=== PATIENT | male | born 1945 | race Caucasian/White ===

== ENCOUNTER 2018-04-26 23:10 | Emergency (ER) | payer MEDICARE ==
[2018-04-26] MEDS ORDERED: Metoprolol Tartrate 5 MG/5 ML VIAL ONE (23:37)
[2018-04-26 23:40] LABS: #Basophils 0.1 thou/uL (0.0-0.2); #Eosinphils 0.1 thou/uL (0.0-0.7); #Lymphocytes 2.5 thou/uL (1.20-3.40); #Monocytes 0.9 thou/uL (0.11-0.59); #Neutrophils 8.2 thou/uL (1.40-6.50); %Basophils 0.9 % (0.0-1.0); %Eosinophils 0.9 % (0.0-10.0); %Lymphocytes 21.3 % (21.0-51.0); %Monocytes 7.5 % (0.0-10.0); %Neutrophils 69.4 % (42.0-75.0); Hemoglobin 15.6 g/dL (14.0-18.0); Mean Corpuscular HGB CONC 33.5 g/dL (32.0-36.0); Mean Corpuscular Hemoglobin 31.4 pg (27.0-31.0); Mean Corpuscular Volume 93.7 fL (78.0-98.0); Mean Platelet Volume 8.1 fL (7.4-10.4); Platelet Count 217 thou/uL (130-400); RBC Distribution Width 12.3 % (11.5-14.5); Red Blood Cell (RBC) Count 4.97 mill/uL (4.70-6.10); White Blood Cell (WBC) Count 11.8 thou/uL (4.8-10.8)
[2018-04-26 23:48] LABS: INR-International Normal Ratio 1.2; PTT 33.5 SEC (22.9-36.1); Prothrombin Time 15.3 SEC (12.0-14.7)
--- NOTE | 2018-04-26 23:57 | RAD ---
FRONTAL VIEW CHEST 04/26/18 COMPARISON: 03/17/16 INDICATION: Chest pain. FINDINGS: patchy left basilar density is present. There is elevation of the right hemidiaphragm with adjacent l inear density to indicate atelectasis or scar. The cardiac silhouette is accentuated by portable tech nique. There is mild vascular congestion. Osseous structure are stable. IMPRESSION: Bibasilar densities which may relate to atelectasis. Prominent pulmonary vasculature. Correlate for fluid status. POS: [facility]
[2018-04-27] LABS: ALT (SGPT) 28 U/L (8-55); AST (SGOT) 34 U/L (5-34); Albumin 4.3 g/dL (3.4-4.8); Alkaline Phosphatase 111 U/L (40-150); Anion Gap 14 mmol/L (10-20); BUN (Urea Nitrogen) 15 mg/dL (8.4-25.7); Bilirubin, Total 1.2 mg/dL (0.2-1.2); Calc. Creatinine Clearance 0 mL/min (70-130); Calcium 9.4 mg/dL (7.8-10.44); Carbon Dioxide 22 mmol/L (23-31); Chloride 106 mmol/L (98-107); Estimated GFR-MDRD 63; Globulin 3.4 g/dL (2.4-3.5); Glucose 187 mg/dL (83-110); Potassium 3.4 mmol/L (3.5-5.1); Protein, Total 7.7 g/dL (5.8-8.1); Sodium 139 mmol/L (136-145)
[2018-04-27] MEDS ORDERED: Metoprolol Tartrate 5 MG/5 ML VIAL ONE (00:48)
== END 2018-04-27 03:21 | disposition home or self-care (01) ==
LOC: ERS 23:10
DX: I48.91 Unspecified atrial fibrillation (principal); I10 Essential (primary) hypertension; E78.00 Pure hypercholesterolemia, unspecified; Z79.899 Other long term (current) drug therapy
CPT/HCPCS: 71045; 80053; 83880; 84443; 84484; 85025; 85610; 85730; 93005; 96361; 96374; 96376

== ENCOUNTER 2021-02-01 13:24 | Outpatient (CLI) | payer MEDICARE | END 2021-02-01 13:25 | disposition home or self-care (01) | LOC: BICULT 13:24 | PROVIDERS: ATTEND Family Medicine | DX: N28.9 Disorder of kidney and ureter, unspecified (principal) | CPT/HCPCS: 76770 ==

== ENCOUNTER 2021-08-26 15:36 | Outpatient (CLI) | payer MEDICARE | END 2021-08-26 15:37 | disposition home or self-care (01) | LOC: BICRAD 15:36 | PROVIDERS: ATTEND Family Medicine | DX: R05.9 Cough, unspecified (principal) | CPT/HCPCS: 71046; U0003; U0005 ==

== ENCOUNTER 2022-12-01 13:48 | Outpatient (CLI) | payer MEDICARE | END 2022-12-01 13:49 | disposition home or self-care (01) | LOC: ULT 13:48 | PROVIDERS: ATTEND Nurse Practitioner Family | DX: R59.1 Generalized enlarged lymph nodes (principal); R68.84 Jaw pain | CPT/HCPCS: 76536 ==

== ENCOUNTER 2023-07-31 22:59 | Inpatient (IN) | payer MEDICARE ==
[2023-08-01 00:34] LABS: Hematocrit 39.5 % (42.0-52.0); Hemoglobin 12.6 g/dL (14.0-18.0); Mean Corpuscular HGB CONC 31.9 g/dL (32.0-36.0); Mean Corpuscular Hemoglobin 28.3 pg (27.0-31.0); Mean Corpuscular Volume 88.6 fL (78.0-98.0); Mean Platelet Volume 10.2 fL (7.4-10.4); Platelet Count 190 10x3/uL (130-400); RBC Distribution Width 15.3 % (11.5-14.5); Red Blood Cell (RBC) Count 4.46 mill/uL (4.70-6.10)
[2023-08-01 00:52] LABS: Troponin I 0.011 ng/mL (< 0.028)
[2023-08-01 00:53] LABS: Globulin 3.2 g/dL (2.4-3.5)
[2023-08-01 00:55] LABS: Band 1 % (5-11); Eosinophils 1 % (0-10); Lymphocytes 17 % (21-51); Monocytes 15 % (0-10); Neutrophil 65 % (42-75); Platelet Adequacy Comment Platelets Normal; RBC Morphology Within Normal Limits; Smudge Cells 17.2 %
[2023-08-01 00:57] LABS: ALT (SGPT) 21 U/L (8-55); AST (SGOT) 29 U/L (5-34); Albumin 3.5 g/dL (3.4-4.8); Alkaline Phosphatase 74 U/L (40-110); Anion Gap 15 mmol/L (10-20); BUN (Urea Nitrogen) 18 mg/dL (8.4-25.7); Bilirubin, Total 0.4 mg/dL (0.2-1.2); Calc. Creatinine Clearance 0 mL/min (70-130); Calcium 8.9 mg/dL (7.8-10.44); Carbon Dioxide 22 mmol/L (23-31); Chloride 104 mmol/L (98-107); Estimated GFR 44; Glucose 102 mg/dL (83-110); Potassium 4.4 mmol/L (3.5-5.1); Protein, Total 6.7 g/dL (5.8-8.1); Sodium 137 mmol/L (136-145)
[2023-08-01] MEDS ORDERED: Ondansetron ODT 4 MG TAB SL PRN (07:30)
[2023-08-01] MEDS ORDERED: Ondansetron PF 4 MG/2 ML Vial IVP PRN (07:30)
[2023-08-01 07:55] LABS: Troponin I Less than 0.010 ng/mL (< 0.028)
[2023-08-01] MEDS: Dronedarone HCl 400 MG TAB PO SCH (08:00)
[2023-08-01 09:27] LABS: #Basophils 0.05 10x3/uL (0.0-0.2); %Basophils 0.8 % (0.0-1.0); %Eosinophils 0.5 % (0.0-10.0); %Neutrophils 53.5 % (42.0-75.0); Hematocrit 36.2 % (42.0-52.0); Hemoglobin 11.6 g/dL (14.0-18.0); Mean Corpuscular Hemoglobin 28.2 pg (27.0-31.0); Mean Corpuscular Volume 88.1 fL (78.0-98.0); Mean Platelet Volume 10.1 fL (7.4-10.4); Platelet Count 174 10x3/uL (130-400); RBC Distribution Width 15.3 % (11.5-14.5); Red Blood Cell (RBC) Count 4.11 mill/uL (4.70-6.10)
[2023-08-01 11:27] LABS: Troponin I Less than 0.010 ng/mL (< 0.028)
[2023-08-01 12:22] VITALS: BMI 31.9
[2023-08-01 12:24] LABS: Troponin I Less than 0.010 ng/mL (< 0.028)
[2023-08-01 12:25] LABS: BUN (Urea Nitrogen) 17 mg/dL (8.4-25.7); Calc. Creatinine Clearance 59 mL/min (70-130); Calcium 8.5 mg/dL (7.8-10.44); Carbon Dioxide 21 mmol/L (23-31); Chloride 106 mmol/L (98-107); Estimated GFR 53; Glucose 88 mg/dL (83-110); Potassium 4.1 mmol/L (3.5-5.1); Sodium 136 mmol/L (136-145)
[2023-08-01 12:29] LABS: Anion Gap 13 mmol/L (10-20)
[2023-08-01] MEDS ORDERED: Metoprolol Tartrate 25 MG TAB PO PRN (15:13)
[2023-08-01] MEDS ORDERED: Metoprolol Tartrate 25 MG TAB ONE (15:19)
[2023-08-01] MEDS: Metoprolol Tartrate 25 MG TAB PO SCH (15:29)
[2023-08-01] MEDS ORDERED: Amiodarone 450 MG in Dextrose 5% in Water 250 ML IVPB SCH (16:15)
[2023-08-01] MEDS ORDERED: Dronedarone HCl 400 MG TAB PO SCH (17:00)
[2023-08-01] MEDS ORDERED: Nitroglycerin 2% Ointment 1 INCH/1 GM Packet ONE (17:03)
[2023-08-01] MEDS ORDERED: Nitroglycerin 0.4 MG TAB 1 EACH ONE ×2 (17:10→17:12)
[2023-08-01] MEDS: Nitroglycerin 0.4 MG TAB 1 EACH SL SCH (17:13)
[2023-08-01] MEDS ORDERED: Amiodarone 450 MG, Admixture Fee 1 EACH in Dextrose 5% in Water 250 ML IVPB SCH (17:30)
[2023-08-01] MEDS: Amiodarone 150 MG, Admixture Fee 1 EACH in Dextrose 5% in Water 100 ML IVPB SCH (19:10)
[2023-08-01] MEDS ORDERED: Metoprolol Tartrate 25 MG TAB PO SCH (21:00)
[2023-08-01] MEDS: Gabapentin 100 MG CAP PO SCH (21:15)
[2023-08-01] MEDS: Rosuvastatin 20 MG TAB PO SCH (21:15)
[2023-08-01] MEDS: hydrALAZINE 20 MG/ML VIAL SLOW IVP SCH (21:15)
[2023-08-01] MEDS: Apixaban 5 MG TAB PO SCH (21:15)
[2023-08-02] MEDS: Acetaminophen 325 MG TAB PO PRN (04:26)
[2023-08-02 06:49] LABS: #Basophils 0.04 10x3/uL (0.0-0.2); %Basophils 0.6 % (0.0-1.0); %Eosinophils 0.6 % (0.0-10.0); %Lymphocytes 25.7 % (21.0-51.0); %Monocytes 17.6 % (0.0-10.0); %Neutrophils 55.2 % (42.0-75.0); Hematocrit 38.5 % (42.0-52.0); Hemoglobin 12.4 g/dL (14.0-18.0); Mean Corpuscular HGB CONC 32.2 g/dL (32.0-36.0); Mean Corpuscular Hemoglobin 28.9 pg (27.0-31.0); Mean Corpuscular Volume 89.7 fL (78.0-98.0); Mean Platelet Volume 10.2 fL (7.4-10.4); Platelet Count 175 10x3/uL (130-400); RBC Distribution Width 15.6 % (11.5-14.5); Red Blood Cell (RBC) Count 4.29 mill/uL (4.70-6.10)
[2023-08-02 07:20] LABS: Anion Gap 13 mmol/L (10-20); BUN (Urea Nitrogen) 15 mg/dL (8.4-25.7); Calc. Creatinine Clearance 72 mL/min (70-130); Calcium 8.7 mg/dL (7.8-10.44); Carbon Dioxide 20 mmol/L (23-31); Chloride 107 mmol/L (98-107); Estimated GFR 68; Glucose 85 mg/dL (83-110); Potassium 4.2 mmol/L (3.5-5.1); Sodium 136 mmol/L (136-145)
[2023-08-02] MEDS ORDERED: Communication Order-Pharmacy FS SCH (08:41)
[2023-08-02] MEDS ORDERED: Fludrocortisone Acetate 0.1 MG TAB PO SCH (09:00)
[2023-08-02 09:36] LABS: Hematocrit 39.4 % (42.0-52.0); Hemoglobin 12.9 g/dL (14.0-18.0); Platelet Count 181 10x3/uL (130-400)
[2023-08-02] MEDS: Enoxaparin 100 MG (1 mL) SYRINGE SC SCH (09:53)
[2023-08-02] MEDS: Amiodarone 200 MG TAB PO SCH (09:56)
[2023-08-02] MEDS ORDERED: Ondansetron PF 4 MG/2 ML Vial IVP PRN (18:16)
[2023-08-02] MEDS: Fioricet 325/50/40 mg Tablet PO PRN (18:21)
[2023-08-02] MEDS ORDERED: Enoxaparin 80 MG (0.8 mL) SYRINGE SC SCH (21:00)
[2023-08-03 07:11] LABS: #Basophils 0.05 10x3/uL (0.0-0.2); %Basophils 0.6 % (0.0-1.0); %Eosinophils 2.7 % (0.0-10.0); %Lymphocytes 27.8 % (21.0-51.0); %Monocytes 15.2 % (0.0-10.0); %Neutrophils 53.6 % (42.0-75.0); Hematocrit 41.9 % (42.0-52.0); Hemoglobin 13.6 g/dL (14.0-18.0); Mean Corpuscular HGB CONC 32.5 g/dL (32.0-36.0); Mean Corpuscular Hemoglobin 28.8 pg (27.0-31.0); Mean Corpuscular Volume 88.8 fL (78.0-98.0); Mean Platelet Volume 10.7 fL (7.4-10.4); Platelet Count 182 10x3/uL (130-400); RBC Distribution Width 15.4 % (11.5-14.5); Red Blood Cell (RBC) Count 4.72 mill/uL (4.70-6.10)
[2023-08-03 07:32] LABS: Anion Gap 17 mmol/L (10-20); BUN (Urea Nitrogen) 17 mg/dL (8.4-25.7); Calc. Creatinine Clearance 71 mL/min (70-130); Calcium 9.1 mg/dL (7.8-10.44); Carbon Dioxide 20 mmol/L (23-31); Cardiac Risk 2.9 (Less than 4.5); Chloride 107 mmol/L (98-107); Cholesterol 106 mg/dl (< 200 Desired); Estimated GFR 68; Glucose 89 mg/dL (83-110); HDL Cholesterol 37 mg/dL (>60 Neg Risk); LDL Cholesterol, Calculated 53 mg/dL; Potassium 4.1 mmol/L (3.5-5.1); Sodium 140 mmol/L (136-145); Triglycerides 78 mg/dL (Less than 150)
[2023-08-03] MEDS: Metoprolol Tartrate 25 MG TAB PO SCH (08:57)
[2023-08-03] MEDS: Acetaminophen 325 MG TAB PO PRN (17:56)
[2023-08-04 04:18] LABS: #Basophils 0.04 10x3/uL (0.0-0.2); %Basophils 0.5 % (0.0-1.0); %Lymphocytes 30.2 % (21.0-51.0); %Monocytes 14.1 % (0.0-10.0); %Neutrophils 51.1 % (42.0-75.0); Hematocrit 40.4 % (42.0-52.0); Hemoglobin 13.2 g/dL (14.0-18.0); Mean Corpuscular HGB CONC 32.7 g/dL (32.0-36.0); Mean Corpuscular Hemoglobin 28.2 pg (27.0-31.0); Mean Corpuscular Volume 86.3 fL (78.0-98.0); Mean Platelet Volume 10.1 fL (7.4-10.4); Platelet Count 185 10x3/uL (130-400); RBC Distribution Width 15.6 % (11.5-14.5); Red Blood Cell (RBC) Count 4.68 mill/uL (4.70-6.10)
[2023-08-04 04:51] LABS: Anion Gap 15 mmol/L (10-20); BUN (Urea Nitrogen) 18 mg/dL (8.4-25.7); Calc. Creatinine Clearance 71 mL/min (70-130); Calcium 8.9 mg/dL (7.8-10.44); Carbon Dioxide 22 mmol/L (23-31); Chloride 106 mmol/L (98-107); Estimated GFR 68; Glucose 90 mg/dL (83-110); Sodium 139 mmol/L (136-145)
[2023-08-04] MEDS ORDERED: Regadenoson 0.4 MG/5 ML SYRINGE ONE (09:54)
[2023-08-04] MEDS: Amlodipine 5 MG TAB PO SCH (10:13)
[2023-08-04] MEDS: Apixaban 5 MG TAB PO SCH (20:54)
[2023-08-05 04:53] LABS: Hematocrit 38.3 % (42.0-52.0); Hemoglobin 12.6 g/dL (14.0-18.0); Platelet Count 204 10x3/uL (130-400)
[2023-08-05] MEDS: hydrALAZINE 25 MG TAB PO SCH (06:30)
[2023-08-05 13:53] VITALS: BP 136/76; TEMP 97.6
[2023-08-16] MEDS ORDERED: Amiodarone 200 MG TAB PO SCH (09:00)
[2023-08-30] MEDS ORDERED: Amiodarone 200 MG TAB PO SCH (09:00)
== END 2023-08-05 13:56 | disposition home or self-care (01) | DRG 310 ==
LOC: ERS 22:59 → ERHOLD 08-01 02:32 → IMCU/EMU 08-01 18:38 → OBSVTOIN 08-02 13:10 → 2NO 08-04 08:19
PROVIDERS: ADMIT Internal Medicine; ATTEND Internal Medicine
DX: I48.0 Paroxysmal atrial fibrillation (principal); I95.1 Orthostatic hypotension; N18.9 Chronic kidney disease, unspecified; N40.0 Benign prostatic hyperplasia without lower urinary tract symptoms; I12.9 Hypertensive chronic kidney disease with stage 1 through stage 4 chronic kidney disease, or unspecified chronic kidney disease; I25.10 Atherosclerotic heart disease of native coronary artery without angina pectoris; E78.5 Hyperlipidemia, unspecified; Z87.891 Personal history of nicotine dependence; Z82.49 Family history of ischemic heart disease and other diseases of the circulatory system; Z79.899 Other long term (current) drug therapy
CPT/HCPCS: 36415; 36416; 71045; 78452; 80048; 80053; 80061; 82533; 83880; 84443; 84484; 85014; 85018; 85025; 85049; 93005; 93017; 93306; 93880; 96360; 96361; 96372; 96375; A9502; G0378; J0282; J0360; J1650; J2785; J7070

== ENCOUNTER 2023-08-25 08:36 | Outpatient (CLI) | payer MEDICARE ==
[2023-08-25] MEDS ORDERED: Magnevist 469MG/ML 20 ML VIAL ONE (12:45)
== END 2023-08-25 08:37 | disposition home or self-care (01) ==
LOC: BICMRI 08:36
PROVIDERS: ATTEND Family Medicine
DX: G25.0 Essential tremor (principal)
CPT/HCPCS: 70553; A9579

== ENCOUNTER 2023-09-13 08:24 | Outpatient (CLI) | payer MEDICARE | END 2023-09-13 08:25 | disposition home or self-care (01) | LOC: NM 08:24 | PROVIDERS: ATTEND Psychiatry & Neurology Neurology | DX: R25.1 Tremor, unspecified (principal); G31.9 Degenerative disease of nervous system, unspecified | CPT/HCPCS: 78803; A9584 ×2 ==

== ENCOUNTER 2023-10-02 08:13 | Day surgery (SDC) | payer MEDICARE ==
[2023-09-27 09:08] VITALS: BMI 30.5
[2023-09-27 10:10] LABS: Hematocrit 40.9 % (38.8-50.0); Hemoglobin 13.5 g/dL (13.5-17.5); Mean Corpuscular Hemoglobin 29.2 pg (27.0-33.0); Mean Corpuscular Volume 88.3 fL (81.2-95.1); Platelet Count 274 10x3/uL (150-450); RBC Distribution Width 15.1 % (11.5-14.5); Red Blood Cell (RBC) Count 4.63 10x6/uL (4.32-5.72); White Blood Cell (WBC) Count 8.3 10x3/uL (3.5-10.5)
[2023-09-27 10:15] LABS: INR-International Normal Ratio 1.1; PTT 27.9 sec (22.0-33.0); Prothrombin Time 11.5 sec (9.5-12.1)
[2023-09-27 10:17] LABS: Anion Gap 14 mmol/L (10-20); BUN (Urea Nitrogen) 17 mg/dL (8.4-25.7); Calc. Creatinine Clearance 60 mL/min (70-130); Calcium 9.3 mg/dL (7.8-10.44); Carbon Dioxide 22 mmol/L (23-31); Chloride 108 mmol/L (98-107); Estimated GFR 57; Glucose 159 mg/dL (83-110); Potassium 4.4 mmol/L (3.5-5.1); Sodium 140 mmol/L (136-145)
[2023-10-02] MEDS ORDERED: PROPOFOL 200 MG/20 ML VIAL ONE (11:00)
[2023-10-02] MEDS ORDERED: Rocuronium Bromide 10 MG/ML (10ML VIAL) ONE (11:00)
[2023-10-02] MEDS ORDERED: PHENYLEPHRINE-NS 100 MCG/ML 10 ML SYRINGE ONE (11:00)
[2023-10-02] MEDS ORDERED: Lidocaine 1% PF 5 ML VIAL ONE (11:00)
[2023-10-02] MEDS ORDERED: ePHEDrine Sulfate 50 MG/10 ML VIAL ONE (11:00)
[2023-10-02] MEDS ORDERED: Heparin 25,000 units/D5W 500 ML ONE (11:10)
[2023-10-02] MEDS ORDERED: Sevoflurane 250 ML INH ANEST BOTTLE ONE (12:04)
[2023-10-02] MEDS ORDERED: SUGAMMADEX SODIUM 200 MG/2 ML VIAL ONE (13:27)
[2023-10-02] MEDS ORDERED: fentaNYL 50 mcg/mL 1 mL Vial ONE (14:39)
== END 2023-10-02 17:13 | disposition home or self-care (01) ==
LOC: SDC 08:13
PROVIDERS: ATTEND Internal Medicine Cardiovascular Disease
PROC: 4A023FZ Measurement of Cardiac Rhythm, Percutaneous Approach (ICD-10-PCS; principal; 2023-10-02)
PROC: 02583ZZ Destruction of Conduction Mechanism, Percutaneous Approach (ICD-10-PCS; 2023-10-02)
DX: I48.0 Paroxysmal atrial fibrillation (principal); I95.1 Orthostatic hypotension; Z79.01 Long term (current) use of anticoagulants; Z87.891 Personal history of nicotine dependence; Z88.8 Allergy status to other drugs, medicaments and biological substances
CPT/HCPCS: 80048; 85027; 85347 ×2; 85610; 85730; 93005; 93622; 93656; 93657; C1732 ×2; C1759; C1760; C1894; J1644; J2704; J3010

== ENCOUNTER 2023-10-05 00:34 | Inpatient (IN) | payer MEDICARE ==
[2023-10-05] MEDS ORDERED: Ketorolac Tromethamine 30 MG (1 mL) VIAL ONE (01:20)
[2023-10-05] MEDS ORDERED: Acetaminophen 325 MG TAB PO PRN (02:45)
[2023-10-05] MEDS ORDERED: Ondansetron PF 4 MG/2 ML Vial IVP PRN (02:45)
[2023-10-05] MEDS ORDERED: Ondansetron ODT 4 MG TAB SL PRN (02:45)
[2023-10-05 03:01] LABS: Influenza A by NAA Not Detected (NotDetected); Influenza B by NAA Not Detected (NotDetected); SARS-CoV-2 NAA Rapid Test Not Detected (NotDetected)
[2023-10-05 03:19] LABS: #Basophils 0.04 10x3/uL (0.0-0.2); %Basophils 0.2 % (0.0-1.0); %Eosinophils 0.2 % (0.0-10.0); %Lymphocytes 3.8 % (21.0-51.0); %Monocytes 6.7 % (0.0-10.0); %Neutrophils 88.1 % (42.0-75.0); Hematocrit 33.4 % (42.0-52.0); Hemoglobin 10.8 g/dL (14.0-18.0); Mean Corpuscular HGB CONC 32.3 g/dL (32.0-36.0); Mean Corpuscular Hemoglobin 28.9 pg (27.0-31.0); Mean Corpuscular Volume 89.3 fL (78.0-98.0); Mean Platelet Volume 9.7 fL (7.4-10.4); Platelet Count 167 10x3/uL (130-400); RBC Distribution Width 15.2 % (11.5-14.5); Red Blood Cell (RBC) Count 3.74 mill/uL (4.70-6.10)
[2023-10-05 03:32] LABS: ALT (SGPT) 93 U/L (8-55); AST (SGOT) 164 U/L (5-34); Albumin 2.8 g/dL (3.4-4.8); Alkaline Phosphatase 154 U/L (40-110); Anion Gap 12 mmol/L (10-20); BUN (Urea Nitrogen) 16 mg/dL (8.4-25.7); Bilirubin, Total 1.9 mg/dL (0.2-1.2); Calc. Creatinine Clearance 0 mL/min (70-130); Calcium 8.1 mg/dL (7.8-10.44); Carbon Dioxide 19 mmol/L (23-31); Chloride 110 mmol/L (98-107); Estimated GFR 47; Globulin 2.9 g/dL (2.4-3.5); Glucose 124 mg/dL (83-110); Potassium 3.7 mmol/L (3.5-5.1); Protein, Total 5.7 g/dL (5.8-8.1); Sodium 137 mmol/L (136-145)
[2023-10-05 03:47] VITALS: BMI 28.3
[2023-10-05] MEDS ORDERED: Acetaminophen 650 MG Suppository PR PRN (04:26)
[2023-10-05] MEDS: Pantoprazole 40 MG VIAL IVP SCH ×2 (04:46→20:40)
[2023-10-05] MEDS: Morphine 4 MG/ML VIAL SLOW IVP SCH (04:47)
[2023-10-05] MEDS: Sodium Chloride 0.9% 1,000 ML IV SCH (04:52)
[2023-10-05 06:19] LABS: Bacteria/HPF None Seen HPF (None Seen); Bilirubin Negative (Negative); Blood, Urine Negative (Negative); CAUTI Indications for Culture Pelvic or flank pain; Clarity Clear (Clear); Glucose, Urine (Dipstick) 30 mg/dL (Negative); Ketone, Urine Negative (Negative); Leukocyte Negative Leu/uL (Negative); Nitrite Negative (Negative); Protein, Urine (Dipstick) 20 mg/dL (Neg-Trace); RBC/HPF 0-3 HPF (0-3); Squamous Epithelial 0-3 HPF (0-3); Urobilinogen Normal mg/dL (Less than 2); WBC/HPF 0-3 HPF (0-3); pH, Urine 5.5 (5.0-9.0)
[2023-10-05 06:20] LABS: Specific Gravity, Urine 1.046 (1.002-1.036)
[2023-10-05 06:21] LABS: Urine Culture Reflex No No
[2023-10-05] MEDS: Piperacillin/Tazobactam 3.375 GM in Sodium Chloride 0.9% 100 ML IVPB SCH ×2 (07:24→08:41)
[2023-10-05] MEDS ORDERED: Sucralfate 1 GM/10 ML UDCUP PO SCH (07:30)
[2023-10-05 07:51] LABS: Critical Call Chem Troponin I RESULT DECREASING; Troponin I 0.726 ng/mL (< 0.028)
[2023-10-05] MEDS: Morphine 4 MG/ML VIAL SLOW IVP PRN (08:40)
[2023-10-05] MEDS: D5 LR w/20 mEq KCL 1,000 ML IV SCH (10:31)
[2023-10-06 03:54] LABS: Hematocrit 31.3 % (42.0-52.0); Hemoglobin 10.1 g/dL (14.0-18.0); Mean Corpuscular HGB CONC 32.3 g/dL (32.0-36.0); Mean Corpuscular Hemoglobin 28.5 pg (27.0-31.0); Mean Corpuscular Volume 88.4 fL (78.0-98.0); Mean Platelet Volume 10.6 fL (7.4-10.4); Platelet Count 141 10x3/uL (130-400); RBC Distribution Width 15.9 % (11.5-14.5); Red Blood Cell (RBC) Count 3.54 mill/uL (4.70-6.10)
[2023-10-06 04:10] LABS: ALT (SGPT) 125 U/L (8-55); AST (SGOT) 148 U/L (5-34); Albumin 2.2 g/dL (3.4-4.8); Alkaline Phosphatase 108 U/L (40-110); Bilirubin, Direct 0.6 mg/dL (0.1-0.3); Phosphorus 2.9 mg/dL (2.3-4.7); Protein, Total 5.2 g/dL (5.8-8.1)
[2023-10-06 04:12] LABS: Lactic Acid 1.4 mmol/L (0.5-2.2)
[2023-10-06 04:13] LABS: Anion Gap 13 mmol/L (10-20); BUN (Urea Nitrogen) 24 mg/dL (8.4-25.7); Calc. Creatinine Clearance 45 mL/min (70-130); Carbon Dioxide 22 mmol/L (23-31); Chloride 111 mmol/L (98-107); Estimated GFR 44; Glucose 141 mg/dL (83-110); Magnesium 1.6 mg/dL (1.6-2.6); Potassium 4.1 mmol/L (3.5-5.1); Sodium 142 mmol/L (136-145)
[2023-10-06 04:22] LABS: Band 27 % (5-11); Lymphocytes 3 % (21-51); Metamyelocyte 2 % (0-0); Monocytes 2 % (0-10); Neutrophil 66 % (42-75); Platelet Adequacy Comment Platelets Normal; Polychromasia SLIGHT = 2-3 cells HPF (0-2)
[2023-10-06] MEDS: Magnesium 2 GM/50 ML(in water) 2 GM in Premix 1 BAG IVPB SCH (08:57)
[2023-10-06] MEDS ORDERED: Pantoprazole 40 MG VIAL IVP SCH (09:00)
[2023-10-06] MEDS: Morphine 2 MG/ML VIAL SLOW IVP PRN (14:39)
[2023-10-06] MEDS: D5 LR w/20 mEq KCL 1,000 ML IV SCH (17:22)
[2023-10-06] MEDS: Sodium Chloride 0.9% 1,000 ML IV SCH (21:19)
[2023-10-07 04:34] LABS: ALT (SGPT) 81 U/L (8-55); AST (SGOT) 62 U/L (5-34); Albumin 2.1 g/dL (3.4-4.8); Alkaline Phosphatase 107 U/L (40-110); Anion Gap 11 mmol/L (10-20); BUN (Urea Nitrogen) 21 mg/dL (8.4-25.7); Calc. Creatinine Clearance 56 mL/min (70-130); Calcium 8.4 mg/dL (7.8-10.44); Carbon Dioxide 20 mmol/L (23-31); Chloride 110 mmol/L (98-107); Estimated GFR 58; Globulin 3.5 g/dL (2.4-3.5); Glucose 145 mg/dL (83-110); Lipase 25 U/L (8-78); Magnesium 2.2 mg/dL (1.6-2.6); Potassium 3.8 mmol/L (3.5-5.1); Protein, Total 5.6 g/dL (5.8-8.1); Sodium 137 mmol/L (136-145)
[2023-10-07 04:36] LABS: Immunoglob - G (Total IgG) 760 mg/dL (540-1822); Immunoglob - M (Total IgM) 41 mg/dL (22-240)
[2023-10-07 04:51] LABS: HBCM Index 0.07 S/CO (0-0.79); HBsAg Index 0.23 S/CO (0-0.99); Hep A IgM AB NONREACTIVE (NonReactive); Hep A IgM S/CO 0.15 S/CO (0-0.79); Hep B Surf Ag NONREACTIVE S/CO (NonReactive); Hep C IgG Ab NONREACTIVE S/CO (NonReactive); Hep C Index 0.06 S/CO (0-0.79); Hepatitis B Core IgM Abs NONREACTIVE S/CO (NonReactive)
[2023-10-07 05:01] LABS: Phosphorus 1.6 mg/dL (2.3-4.7)
[2023-10-07 05:20] LABS: Hematocrit 30.9 % (42.0-52.0); Hemoglobin 10.1 g/dL (14.0-18.0); Mean Corpuscular HGB CONC 32.7 g/dL (32.0-36.0); Mean Corpuscular Hemoglobin 29.3 pg (27.0-31.0); Mean Corpuscular Volume 89.6 fL (78.0-98.0); Platelet Count 151 10x3/uL (130-400); Red Blood Cell (RBC) Count 3.45 mill/uL (4.70-6.10)
[2023-10-07 06:25] LABS: Anisocytosis MODERATE=16-30 cells HPF (0-5); Band 15 % (5-11); Burr Cells SLIGHT = 2-5 cells HPF (0-1); Elliptocytes SLIGHT = 2-5 cells HPF (0-1); Lymphocytes 2 % (21-51); Macrocytosis SLIGHT = 6-15 cells HPF (0-5); Monocytes 2 % (0-10); Neutrophil 81 % (42-75); Platelet Adequacy Comment Platelets Normal; Poikilocytosis SLIGHT = 6-15 cells HPF (0-5); Polychromasia SLIGHT = 2-3 cells HPF (0-2)
[2023-10-07] MEDS ORDERED: PROPOFOL 20 ML ONE (12:07)
[2023-10-07] MEDS: Sucralfate 1 GM TAB PO SCH (18:01)
[2023-10-07] MEDS: Potassium Phosphate 30 MMOL in Sodium Chloride 0.9% 250 ML 250 ML IVPB SCH (21:04)
[2023-10-08 04:31] LABS: #Basophils 0.04 10x3/uL (0.0-0.2); #Eosinphils Less than 0.03 10x3/uL (0.0-0.7); %Basophils 0.2 % (0.0-1.0); %Eosinophils 0.1 % (0.0-10.0); %Lymphocytes 4.8 % (21.0-51.0); %Monocytes 8.7 % (0.0-10.0); %Neutrophils 85.8 % (42.0-75.0); Hematocrit 31.2 % (42.0-52.0); Hemoglobin 10.2 g/dL (14.0-18.0); Mean Corpuscular HGB CONC 32.7 g/dL (32.0-36.0); Mean Corpuscular Hemoglobin 28.3 pg (27.0-31.0); Mean Corpuscular Volume 86.7 fL (78.0-98.0); Mean Platelet Volume 10.3 fL (7.4-10.4); Platelet Count 143 10x3/uL (130-400)
[2023-10-08 05:14] LABS: ALT (SGPT) 55 U/L (8-55); AST (SGOT) 37 U/L (5-34); Albumin 1.9 g/dL (3.4-4.8); Alkaline Phosphatase 114 U/L (40-110); Anion Gap 12 mmol/L (10-20); BUN (Urea Nitrogen) 17 mg/dL (8.4-25.7); Bilirubin, Total 1.2 mg/dL (0.2-1.2); Calc. Creatinine Clearance 68 mL/min (70-130); Calcium 8.2 mg/dL (7.8-10.44); Carbon Dioxide 21 mmol/L (23-31); Chloride 109 mmol/L (98-107); Estimated GFR 73; Globulin 3.5 g/dL (2.4-3.5); Glucose 116 mg/dL (83-110); Protein, Total 5.4 g/dL (5.8-8.1); Sodium 138 mmol/L (136-145)
[2023-10-08] MEDS: Cholecalciferol 1,000 UNITS (25 MCG) TAB PO SCH (09:15)
[2023-10-08] MEDS: Pantoprazole DR 40 MG TAB PO SCH (09:16)
[2023-10-08] MEDS ORDERED: Iopamidol 370 76% 100 ML VIAL ONE (11:03)
[2023-10-08] MEDS: Apixaban 5 MG TAB PO SCH (20:47)
[2023-10-08] MEDS: Acetaminophen 325 MG TAB PO PRN (21:05)
[2023-10-08] MEDS: Morphine 4 MG/ML VIAL SLOW IVP SCH (22:10)
[2023-10-08 22:41] LABS: #Basophils Less than 0.03 10x3/uL (0.0-0.2); %Basophils 0.1 % (0.0-1.0); %Eosinophils 0.3 % (0.0-10.0); %Lymphocytes 8.1 % (21.0-51.0); %Monocytes 12.2 % (0.0-10.0); %Neutrophils 78.6 % (42.0-75.0); Hematocrit 33.1 % (42.0-52.0); Hemoglobin 11.1 g/dL (14.0-18.0); Mean Corpuscular HGB CONC 33.5 g/dL (32.0-36.0); Mean Corpuscular Hemoglobin 28.5 pg (27.0-31.0); Mean Corpuscular Volume 85.1 fL (78.0-98.0); Mean Platelet Volume 10.4 fL (7.4-10.4); Platelet Count 138 10x3/uL (130-400); RBC Distribution Width 16.1 % (11.5-14.5); Red Blood Cell (RBC) Count 3.89 mill/uL (4.70-6.10)
[2023-10-08 23:01] LABS: Lactic Acid 1.1 mmol/L (0.5-2.2)
[2023-10-08 23:05] LABS: ALT (SGPT) 46 U/L (8-55); AST (SGOT) 36 U/L (5-34); Albumin 1.9 g/dL (3.4-4.8); Alkaline Phosphatase 111 U/L (40-110); Anion Gap 14 mmol/L (10-20); BUN (Urea Nitrogen) 19 mg/dL (8.4-25.7); Bilirubin, Total 1.3 mg/dL (0.2-1.2); Calc. Creatinine Clearance 68 mL/min (70-130); Calcium 8.3 mg/dL (7.8-10.44); Carbon Dioxide 20 mmol/L (23-31); Chloride 108 mmol/L (98-107); Estimated GFR 73; Globulin 3.8 g/dL (2.4-3.5); Glucose 123 mg/dL (83-110); Lipase 243 U/L (8-78); Potassium 3.5 mmol/L (3.5-5.1); Protein, Total 5.7 g/dL (5.8-8.1); Sodium 138 mmol/L (136-145)
[2023-10-09] MEDS: Lactated Ringer's 1,000 ML IV SCH ×2 (00:38→16:40)
[2023-10-09 05:09] LABS: #Basophils 0.03 10x3/uL (0.0-0.2); %Basophils 0.2 % (0.0-1.0); %Eosinophils 0.2 % (0.0-10.0); %Lymphocytes 4.7 % (21.0-51.0); %Monocytes 11.1 % (0.0-10.0); %Neutrophils 82.3 % (42.0-75.0); Hematocrit 33.7 % (42.0-52.0); Mean Corpuscular HGB CONC 32.6 g/dL (32.0-36.0); Mean Corpuscular Hemoglobin 28.3 pg (27.0-31.0); Mean Corpuscular Volume 86.6 fL (78.0-98.0); Mean Platelet Volume 10.8 fL (7.4-10.4); Platelet Count 149 10x3/uL (130-400); RBC Distribution Width 16.1 % (11.5-14.5); Red Blood Cell (RBC) Count 3.89 mill/uL (4.70-6.10)
[2023-10-09 05:10] LABS: ALT (SGPT) 46 U/L (8-55); AST (SGOT) 40 U/L (5-34); Albumin 1.9 g/dL (3.4-4.8); Alkaline Phosphatase 116 U/L (40-110); Anion Gap 14 mmol/L (10-20); BUN (Urea Nitrogen) 19 mg/dL (8.4-25.7); Bilirubin, Total 1.6 mg/dL (0.2-1.2); Calc. Creatinine Clearance 72 mL/min (70-130); Calcium 8.4 mg/dL (7.8-10.44); Carbon Dioxide 21 mmol/L (23-31); Chloride 107 mmol/L (98-107); Estimated GFR 78; Glucose 107 mg/dL (83-110); Potassium 4.1 mmol/L (3.5-5.1); Protein, Total 5.9 g/dL (5.8-8.1); Sodium 138 mmol/L (136-145)
[2023-10-09] MEDS: Morphine 4 MG/ML VIAL SLOW IVP PRN (08:08)
[2023-10-09] MEDS: Morphine 4 MG/ML VIAL SLOW IVP SCH (10:25)
[2023-10-09] MEDS: Furosemide 40 MG TAB PO PRN (12:54)
[2023-10-10 04:13] LABS: #Basophils 0.05 10x3/uL (0.0-0.2); %Basophils 0.3 % (0.0-1.0); %Eosinophils 0.2 % (0.0-10.0); %Lymphocytes 5.2 % (21.0-51.0); %Monocytes 10.3 % (0.0-10.0); %Neutrophils 82.9 % (42.0-75.0); Hematocrit 34.8 % (42.0-52.0); Hemoglobin 11.5 g/dL (14.0-18.0); Mean Corpuscular Hemoglobin 28.3 pg (27.0-31.0); Mean Corpuscular Volume 85.5 fL (78.0-98.0); Mean Platelet Volume 11.3 fL (7.4-10.4); Platelet Count 212 10x3/uL (130-400); RBC Distribution Width 16.1 % (11.5-14.5); Red Blood Cell (RBC) Count 4.07 mill/uL (4.70-6.10)
[2023-10-10 04:59] LABS: Lipase 104 U/L (8-78); Phosphorus 3.2 mg/dL (2.3-4.7)
[2023-10-10 05:01] LABS: ALT (SGPT) 34 U/L (8-55); AST (SGOT) 28 U/L (5-34); Albumin 1.9 g/dL (3.4-4.8); Alkaline Phosphatase 125 U/L (40-110); Anion Gap 18 mmol/L (10-20); BUN (Urea Nitrogen) 21 mg/dL (8.4-25.7); Bilirubin, Total 1.4 mg/dL (0.2-1.2); Calc. Creatinine Clearance 54 mL/min (70-130); Calcium 8.7 mg/dL (7.8-10.44); Carbon Dioxide 21 mmol/L (23-31); Chloride 103 mmol/L (98-107); Estimated GFR 55; Globulin 4.3 g/dL (2.4-3.5); Glucose 129 mg/dL (83-110); Potassium 3.6 mmol/L (3.5-5.1); Protein, Total 6.2 g/dL (5.8-8.1); Sodium 138 mmol/L (136-145)
[2023-10-10 11:23] LABS: ANA Symphony (Qualitative) Negative (Negative); ANA Symphony (Quantitative) 0.2 Ratio (< 0.7 Negative); EliA Vaculitis New Method **** NEW METHOD ****; Mitochondrial Ab 0.6 U/mL (<4 Negative)
[2023-10-10] MEDS ORDERED: Sodium Bicarbonate 2.5 MEQ/5 ML SDV ONE (13:32)
[2023-10-10] MEDS ORDERED: fentaNYL 50 mcg/mL 1 mL Vial ONE ×2 (13:32→16:11)
[2023-10-10] MEDS ORDERED: Midazolam HCl 2 mg/2 ml Vial ONE (13:32)
[2023-10-10] MEDS ORDERED: Lidocaine 1% w/Epinephrine 1:100K 20 ML VIAL ONE (13:32)
[2023-10-10 17:28] LABS: Troponin I 0.098 ng/mL (< 0.028)
[2023-10-11 05:16] LABS: #Basophils 0.03 10x3/uL (0.0-0.2); %Basophils 0.2 % (0.0-1.0); %Eosinophils 0.4 % (0.0-10.0); %Lymphocytes 6.5 % (21.0-51.0); %Monocytes 8.8 % (0.0-10.0); %Neutrophils 83.1 % (42.0-75.0); Hematocrit 28.6 % (42.0-52.0); Hemoglobin 9.5 g/dL (14.0-18.0); Mean Corpuscular HGB CONC 33.2 g/dL (32.0-36.0); Mean Corpuscular Hemoglobin 28.4 pg (27.0-31.0); Mean Corpuscular Volume 85.6 fL (78.0-98.0); Mean Platelet Volume 11.4 fL (7.4-10.4); Platelet Count 249 10x3/uL (130-400); RBC Distribution Width 16.1 % (11.5-14.5); Red Blood Cell (RBC) Count 3.34 mill/uL (4.70-6.10)
[2023-10-11 05:20] LABS: Body Fluid Source Abscess Fluid; Clarity Cloudy/Turbid (Clear); Tube # EDTA
[2023-10-11 05:21] LABS: BF Color Red
[2023-10-11 05:41] LABS: ALT (SGPT) 23 U/L (8-55); AST (SGOT) 24 U/L (5-34); Albumin 1.6 g/dL (3.4-4.8); Alkaline Phosphatase 119 U/L (40-110); Anion Gap 11 mmol/L (10-20); BUN (Urea Nitrogen) 22 mg/dL (8.4-25.7); Bilirubin, Total 0.8 mg/dL (0.2-1.2); Calc. Creatinine Clearance 71 mL/min (70-130); Calcium 8.2 mg/dL (7.8-10.44); Carbon Dioxide 25 mmol/L (23-31); Chloride 108 mmol/L (98-107); Estimated GFR 77; Globulin 3.8 g/dL (2.4-3.5); Glucose 123 mg/dL (83-110); Potassium 3.4 mmol/L (3.5-5.1); Protein, Total 5.4 g/dL (5.8-8.1); Sodium 141 mmol/L (136-145)
[2023-10-11 06:38] LABS: Clarity Cloudy/Turbid (Clear); Tube # EDTA
[2023-10-11 06:39] LABS: BF Color Brown
[2023-10-11] MEDS: traMADol HCl 50 MG TAB PO PRN (21:04)
[2023-10-12 05:46] LABS: #Basophils 0.03 10x3/uL (0.0-0.2); %Basophils 0.2 % (0.0-1.0); %Eosinophils 0.3 % (0.0-10.0); %Lymphocytes 6.7 % (21.0-51.0); %Monocytes 7.1 % (0.0-10.0); %Neutrophils 84.8 % (42.0-75.0); Hematocrit 29.3 % (42.0-52.0); Hemoglobin 9.8 g/dL (14.0-18.0); Mean Corpuscular HGB CONC 33.4 g/dL (32.0-36.0); Mean Corpuscular Hemoglobin 28.6 pg (27.0-31.0); Mean Corpuscular Volume 85.4 fL (78.0-98.0); Mean Platelet Volume 10.9 fL (7.4-10.4); Platelet Count 322 10x3/uL (130-400); RBC Distribution Width 16.3 % (11.5-14.5); Red Blood Cell (RBC) Count 3.43 mill/uL (4.70-6.10)
[2023-10-12 06:11] LABS: ALT (SGPT) 18 U/L (8-55); AST (SGOT) 23 U/L (5-34); Albumin 1.7 g/dL (3.4-4.8); Alkaline Phosphatase 94 U/L (40-110); Anion Gap 12 mmol/L (10-20); BUN (Urea Nitrogen) 18 mg/dL (8.4-25.7); Bilirubin, Total 0.7 mg/dL (0.2-1.2); Calc. Creatinine Clearance 85 mL/min (70-130); Calcium 8.1 mg/dL (7.8-10.44); Carbon Dioxide 23 mmol/L (23-31); Chloride 106 mmol/L (98-107); Estimated GFR 90; Glucose 96 mg/dL (83-110); Potassium 3.3 mmol/L (3.5-5.1); Protein, Total 5.7 g/dL (5.8-8.1); Sodium 138 mmol/L (136-145)
[2023-10-12] MEDS: Potassium Chloride 20 MEQ TAB PO SCH (09:07)
[2023-10-12] MEDS: Morphine 2 MG/ML VIAL SLOW IVP PRN (10:02)
[2023-10-13 06:27] LABS: #Basophils 0.03 10x3/uL (0.0-0.2); %Basophils 0.2 % (0.0-1.0); %Eosinophils 0.5 % (0.0-10.0); %Lymphocytes 7.3 % (21.0-51.0); %Monocytes 8.1 % (0.0-10.0); %Neutrophils 83.2 % (42.0-75.0); Hematocrit 28.1 % (42.0-52.0); Hemoglobin 9.4 g/dL (14.0-18.0); Mean Corpuscular HGB CONC 33.5 g/dL (32.0-36.0); Mean Corpuscular Hemoglobin 29.5 pg (27.0-31.0); Mean Corpuscular Volume 88.1 fL (78.0-98.0); Mean Platelet Volume 10.7 fL (7.4-10.4); Platelet Count 389 10x3/uL (130-400); Red Blood Cell (RBC) Count 3.19 mill/uL (4.70-6.10)
[2023-10-13 06:49] LABS: Anion Gap 14 mmol/L (10-20); BUN (Urea Nitrogen) 14 mg/dL (8.4-25.7); Calc. Creatinine Clearance 85 mL/min (70-130); Carbon Dioxide 22 mmol/L (23-31); Chloride 105 mmol/L (98-107); Estimated GFR 90; Glucose 83 mg/dL (83-110); Potassium 3.4 mmol/L (3.5-5.1); Sodium 138 mmol/L (136-145)
[2023-10-13] MEDS: Enoxaparin 80 MG (0.8 mL) SYRINGE SC SCH (20:40)
[2023-10-14 04:58] LABS: #Basophils 0.04 10x3/uL (0.0-0.2); %Basophils 0.3 % (0.0-1.0); %Eosinophils 0.7 % (0.0-10.0); %Lymphocytes 8.6 % (21.0-51.0); %Monocytes 8.2 % (0.0-10.0); %Neutrophils 81.2 % (42.0-75.0); Hematocrit 30.3 % (42.0-52.0); Hemoglobin 9.7 g/dL (14.0-18.0); Mean Corpuscular Hemoglobin 27.8 pg (27.0-31.0); Mean Corpuscular Volume 86.8 fL (78.0-98.0); Mean Platelet Volume 10.4 fL (7.4-10.4); Platelet Count 416 10x3/uL (130-400); RBC Distribution Width 16.2 % (11.5-14.5); Red Blood Cell (RBC) Count 3.49 mill/uL (4.70-6.10)
[2023-10-14 05:16] LABS: Anion Gap 12 mmol/L (10-20); BUN (Urea Nitrogen) 12 mg/dL (8.4-25.7); Calc. Creatinine Clearance 87 mL/min (70-130); Calcium 8.1 mg/dL (7.8-10.44); Carbon Dioxide 22 mmol/L (23-31); Chloride 105 mmol/L (98-107); Estimated GFR 90; Glucose 97 mg/dL (83-110); Potassium 3.5 mmol/L (3.5-5.1); Sodium 135 mmol/L (136-145)
[2023-10-14 09:34] VITALS: BMI 28.3
[2023-10-15] MEDS: NOREPINEPHRINE 8 MG/250 ML-D5W 250 ML IVPB SCH (10:50)
[2023-10-15 10:54] LABS: #Basophils 0.05 10x3/uL (0.0-0.2); %Basophils 0.4 % (0.0-1.0); %Eosinophils 1.5 % (0.0-10.0); %Lymphocytes 23.2 % (21.0-51.0); %Neutrophils 66.1 % (42.0-75.0); Hematocrit 24.4 % (42.0-52.0); Hemoglobin 7.6 g/dL (14.0-18.0); Mean Corpuscular HGB CONC 31.1 g/dL (32.0-36.0); Mean Corpuscular Hemoglobin 27.9 pg (27.0-31.0); Mean Corpuscular Volume 89.7 fL (78.0-98.0); Mean Platelet Volume 10.4 fL (7.4-10.4); Platelet Count 530 10x3/uL (130-400); RBC Distribution Width 16.3 % (11.5-14.5); Red Blood Cell (RBC) Count 2.72 mill/uL (4.70-6.10)
[2023-10-15] MEDS: Albumin 5% 250 ML ONE (10:59)
[2023-10-15] MEDS: NOREPINEPHRINE 8 MG/250 ML-D5W 250 ML ONE (10:59)
[2023-10-15 11:00] LABS: Actual Bicarbonate (HCO3a) 15.1 mEq/L (22-28); Base Excess (BEa) -10.4 mEq/L (-2.0 to +3.0); CO2 Tension 31.3 mmHg (35.0-45.0); Calcium, Ionized (arterial) 1.02 mmol/L (1.12-1.30); Carboxyhemoglobin (COHb) 0.9 gm% (0.0-3.0); Hematocrit-ABG 20 % (42.0-52.0); Hemoglobin (Hb) 6.9 g/dL (14.0-18.0); O2 Tension (PaO2), arterial 260.1 mmHg (> 70.0); Potassium - ABG Lab 3.48 mmol/L (3.70-5.30)
[2023-10-15] MEDS: Hydrocortisone Sod Succ/PF 100 mg/2 ml Vial ONE (11:00)
[2023-10-15 11:01] LABS: Puncture Site RRA
[2023-10-15] MEDS: Sodium Bicarb 50 mEq/50 ML VIAL ONE ×2 (11:20→14:28)
[2023-10-15] MEDS: NOREPINEPHRINE 8 MG/250 ML-D5W 0 ML ONE (11:27)
[2023-10-15] MEDS: Albumin 25% 0 ML ONE (11:27)
[2023-10-15] MEDS: Albumin 5% 25 GM (500 mL) BOT IVPB SCH (11:27)
[2023-10-15] MEDS: Dextrose 50% Abboject 50 ML SYRINGE ONE (11:27)
[2023-10-15] MEDS ORDERED: NOREPINEPHRINE 8 MG/250 ML-D5W 250 ML IVPB SCH (11:45)
[2023-10-15 11:53] LABS: ALT (SGPT) 12 U/L (8-55); AST (SGOT) 19 U/L (5-34); Albumin 1.4 g/dL (3.4-4.8); Alkaline Phosphatase 78 U/L (40-110); Anion Gap 11 mmol/L (10-20); BUN (Urea Nitrogen) 10 mg/dL (8.4-25.7); Bilirubin, Total 0.6 mg/dL (0.2-1.2); Calc. Creatinine Clearance 79 mL/min (70-130); Calcium 7.2 mg/dL (7.8-10.44); Carbon Dioxide 20 mmol/L (23-31); Chloride 109 mmol/L (98-107); Estimated GFR 87; Globulin 2.8 g/dL (2.4-3.5); Glucose 124 mg/dL (83-110); Potassium 3.1 mmol/L (3.5-5.1); Protein, Total 4.2 g/dL (5.8-8.1); Sodium 137 mmol/L (136-145)
[2023-10-15] MEDS ORDERED: Pantoprazole 80 MG in Sodium Chloride 0.9% 100 ML IVPB SCH (12:00)
[2023-10-15] MEDS ORDERED: Pantoprazole 80 MG, Admixture Fee 1 EACH in Sodium Chloride 0.9% 100 ML IVPB SCH (12:00)
[2023-10-15] MEDS: Vasopressin In 0.9 % NaCl 40 UNIT in Premix 1 BAG IV SCH (12:08)
[2023-10-15 12:09] LABS: INR-International Normal Ratio 1.7; PTT 46.7 sec (22.9-36.1); Prothrombin Time 19.9 sec (12.0-14.7)
[2023-10-15 12:10] LABS: Lactic Acid 9.8 mmol/L (0.5-2.2)
[2023-10-15 12:17] LABS: D-Dimer Test 7.83 mcg/mL (0.27-0.43)
[2023-10-15] MEDS: Calcium Chloride 1 GM/10 ML Abboject SYRINGE IVP SCH (12:20)
[2023-10-15] MEDS: Sodium Chloride 0.9% 1,000 ML IV SCH (12:21)
[2023-10-15] MEDS: Hydrocortisone Sod Succ/PF 100 mg/2 ml Vial IVP SCH (12:21)
[2023-10-15] MEDS: Sodium Bicarb 50 MEQ/50 ML Abboject 8.4% SYRINGE IVP SCH (12:22)
[2023-10-15] MEDS: Calcium Chloride 1 GM/10 ML Abboject SYRINGE ONE (12:22)
[2023-10-15 12:33] VITALS: TEMP 96.3
[2023-10-15 12:48] LABS: Hematocrit 17.5 % (42.0-52.0); Hemoglobin 5.5 g/dL (14.0-18.0); Mean Corpuscular HGB CONC 31.4 g/dL (32.0-36.0); Mean Corpuscular Hemoglobin 28.5 pg (27.0-31.0); Mean Corpuscular Volume 90.7 fL (78.0-98.0); Mean Platelet Volume 10.6 fL (7.4-10.4); Platelet Count 415 10x3/uL (130-400); RBC Distribution Width 16.6 % (11.5-14.5); Red Blood Cell (RBC) Count 1.93 mill/uL (4.70-6.10)
[2023-10-15] MEDS: Fentanyl CADD 100 ML IV SCH (13:00)
[2023-10-15 13:17] LABS: Band 9 % (5-11); Burr Cells SLIGHT = 2-5 cells HPF (0-1); Hypochromia SLIGHT = 6-15 cells HPF (0-5); Lymphocytes 11 % (21-51); Macrocytosis SLIGHT = 6-15 cells HPF (0-5); Metamyelocyte 4 % (0-0); Neutrophil 75 % (42-75); Platelet Adequacy Comment Platelets Normal; Polychromasia SLIGHT = 2-3 cells HPF (0-2); Target Cells SLIGHT = 2-5 cells HPF (0-1); Toxic Granulation SLIGHT
[2023-10-15] MEDS ORDERED: DISCONTINUE PREVIOUS NARCOTIC PAIN MEDICATIONS AND BENZODIAZEPINES FS SCH (13:30)
[2023-10-15] MEDS ORDERED: Lorazepam 2 MG/ML VIAL SLOW IVP PRN (13:30)
[2023-10-15] MEDS ORDERED: Propofol BOLUS 1,000 MG/100 ML VIAL IV PRN (13:30)
[2023-10-15] MEDS ORDERED: Fentanyl BOLUS 250 ML IVPB PRN (13:30)
[2023-10-15] MEDS ORDERED: Morphine 2 MG/ML VIAL SLOW IVP PRN (13:30)
[2023-10-15 13:44] LABS: Base Excess (BEa) -13.1 mEq/L (-2.0 to +3.0); CO2 Tension 31.2 mmHg (35.0-45.0); Calcium, Ionized (arterial) 0.86 mmol/L (1.12-1.30); Carboxyhemoglobin (COHb) 1.2 gm% (0.0-3.0); Hematocrit-ABG 21 % (42.0-52.0); Hemoglobin (Hb) 7.1 g/dL (14.0-18.0); O2 Tension (PaO2), arterial 137.1 mmHg (> 70.0); Potassium - ABG Lab 4.12 mmol/L (3.70-5.30); pH, Arterial 7.241 (7.35-7.45)
[2023-10-15 13:46] LABS: Actual Bicarbonate (HCO3a) 13.1 mEq/L (22-28); Puncture Site Arterial Line
[2023-10-15] MEDS: Propofol 1,000 MG/100 ML VIAL IV PRN (13:49)
[2023-10-15] MEDS: Protamine Sulfate 50 MG/5 ML VIAL SLOW IVP SCH ×2 (13:56→14:55)
[2023-10-15] MEDS ORDERED: Meropenem 1 GM in Sodium Chloride 0.9% 100 ML IVPB SCH ×2 (14:00→20:00)
[2023-10-15] MEDS ORDERED: Sodium Bicarbonate 150 MEQ in Dextrose 5% in Water 1,000 ML IV SCH (14:00)
[2023-10-15] MEDS: Meropenem 1 GM in Sodium Chloride 0.9% 100 ML IVPB SCH (14:23)
[2023-10-15] MEDS: Fentanyl CADD 100 ML ONE (14:24)
[2023-10-15] MEDS: fentaNYL 50 mcg/mL 1 mL Vial ONE (14:24)
[2023-10-15] MEDS: Propofol 1,000 MG/100 ML VIAL IV ONE (14:24)
[2023-10-15] MEDS ORDERED: Calcium Chloride 1 GM/10 ML Abboject SYRINGE ONE ×3 (14:36→16:18)
[2023-10-15] MEDS ORDERED: EPINEPHrine 1 MG/ML VIAL ONE (14:45)
[2023-10-15] MEDS ORDERED: Bupivacaine 0.25% HCL 30 ML VIAL ONE (14:45)
[2023-10-15] MEDS ORDERED: Protamine Sulfate 50 MG/5 ML VIAL SLOW IVP SCH (14:45)
[2023-10-15 14:49] LABS: #Basophils 0.04 10x3/uL (0.0-0.2); %Basophils 0.2 % (0.0-1.0); %Eosinophils 0.2 % (0.0-10.0); %Lymphocytes 5.5 % (21.0-51.0); %Monocytes 2.1 % (0.0-10.0); %Neutrophils 87.6 % (42.0-75.0); Hematocrit 23.8 % (42.0-52.0); Hemoglobin 7.9 g/dL (14.0-18.0); Mean Corpuscular HGB CONC 33.2 g/dL (32.0-36.0); Mean Corpuscular Hemoglobin 29.2 pg (27.0-31.0); Mean Corpuscular Volume 87.8 fL (78.0-98.0); Mean Platelet Volume 10.6 fL (7.4-10.4); Platelet Count 205 10x3/uL (130-400); RBC Distribution Width 16.9 % (11.5-14.5); Red Blood Cell (RBC) Count 2.71 mill/uL (4.70-6.10)
[2023-10-15] MEDS ORDERED: Rocuronium Bromide 10 MG/ML (10ML VIAL) ONE ×2 (15:23→16:37)
[2023-10-15] MEDS ORDERED: Albumin 5% 500 ML ONE (15:32)
[2023-10-15] MEDS ORDERED: Sodium Bicarb 50 MEQ/50 ML Abboject 8.4% SYRINGE ONE (15:43)
[2023-10-15] MEDS: methylPREDNISolone Sod Succ 40 MG VIAL IVP SCH (15:59)
[2023-10-15] MEDS: Magnesium 2 GM/50 ML(in water) 2 GM in Premix 1 BAG IVPB SCH (16:00)
[2023-10-15] MEDS ORDERED: NOREPINEPHRINE 8 MG/250 ML-D5W 250 ML ONE (16:30)
[2023-10-15] MEDS ORDERED: ePHEDrine Sulfate 50 MG/10 ML VIAL ONE (16:52)
[2023-10-15] MEDS ORDERED: Albumin 5% 1,000 ML ONE (17:01)
[2023-10-15] MEDS ORDERED: Tranexamic Acid 1,000 MG/10 ML VIAL ONE (17:07)
[2023-10-15 18:28] VITALS: BP 110/64
[2023-10-17 09:51] LABS: Analyzer IN Cardio OR; Base Excess (BEa) -18.1 mEq/L (-2.0 to +3.0); CO2 Tension 41.3 mmHg (35.0-45.0); Carboxyhemoglobin (COHb) 0.1 gm% (0.0-3.0); Hematocrit-ABG 28 % (42.0-52.0); Hemoglobin (Hb) 9.6 g/dL (14.0-18.0); Potassium - ABG Lab 4.59 mmol/L (3.70-5.30)
[2023-10-17 09:52] LABS: Actual Bicarbonate (HCO3a) 17.4 mEq/L (22-28); Analyzer IN Cardio OR; Base Excess (BEa) -10.2 mEq/L (-2.0 to +3.0); CO2 Tension 46.8 mmHg (35.0-45.0); Calcium, Ionized (arterial) 0.88 mmol/L (1.12-1.30); Carboxyhemoglobin (COHb) 0.6 gm% (0.0-3.0); Hematocrit-ABG 24 % (42.0-52.0); Hemoglobin (Hb) 8.1 g/dL (14.0-18.0); O2 Tension (PaO2), arterial 177.2 mmHg (> 70.0); Potassium - ABG Lab 4.27 mmol/L (3.70-5.30)
[2023-10-17 09:52] LABS: Analyzer IN Cardio OR; Base Excess (BEa) -16.7 mEq/L (-2.0 to +3.0); CO2 Tension 37.7 mmHg (35.0-45.0); Calcium, Ionized (arterial) 1.11 mmol/L (1.12-1.30); Carboxyhemoglobin (COHb) 0.7 gm% (0.0-3.0); Hematocrit-ABG 20 % (42.0-52.0); Hemoglobin (Hb) 6.9 g/dL (14.0-18.0); O2 Tension (PaO2), arterial 235.2 mmHg (> 70.0); Potassium - ABG Lab 4.99 mmol/L (3.70-5.30)
[2023-10-17 09:59] LABS: Actual Bicarbonate (HCO3a) 11.3 mEq/L (22-28); Calcium, Ionized (arterial) 0.63 mmol/L (1.12-1.30); Puncture Site Arterial Line; pH, Arterial 7.054 (7.35-7.45)
[2023-10-17 10:39] LABS: Puncture Site Arterial Line; pH, Arterial 7.188 (7.35-7.45)
[2023-10-17 10:40] LABS: Actual Bicarbonate (HCO3a) 11.5 mEq/L (22-28); Puncture Site Arterial Line; pH, Arterial 7.104 (7.35-7.45)
== END 2023-10-15 19:40 | disposition expired | DRG 853 ==
LOC: ERS 00:34 → 2SW 02:25 → OBSVTOIN 10-07 09:29 → CCU 10-15 10:46
PROVIDERS: ADMIT Student in an Organized Health Care Education/Training Program; ATTEND Internal Medicine
PROC: 0DJ08ZZ Inspection of Upper Intestinal Tract, Via Natural or Artificial Opening Endoscopic (ICD-10-PCS; principal; 2023-10-07)
PROC: 0D9W30Z Drainage of Peritoneum with Drainage Device, Percutaneous Approach (ICD-10-PCS; 2023-10-10)
PROC: 0F9430Z Drainage of Gallbladder with Drainage Device, Percutaneous Approach (ICD-10-PCS; 2023-10-10)
PROC: 0D9W0ZZ Drainage of Peritoneum, Open Approach (ICD-10-PCS; 2023-10-15)
PROC: 05HM33Z Insertion of Infusion Device into Right Internal Jugular Vein, Percutaneous Approach (ICD-10-PCS; 2023-10-15)
PROC: B543ZZA Ultrasonography of Right Jugular Veins, Guidance (ICD-10-PCS; 2023-10-15)
PROC: 0BH17EZ Insertion of Endotracheal Airway into Trachea, Via Natural or Artificial Opening (ICD-10-PCS; 2023-10-15)
PROC: 5A1935Z Respiratory Ventilation, Less than 24 Consecutive Hours (ICD-10-PCS; 2023-10-15)
PROC: 3E043XZ Introduction of Vasopressor into Central Vein, Percutaneous Approach (ICD-10-PCS; 2023-10-15)
PROC: 30243K1 Transfusion of Nonautologous Frozen Plasma into Central Vein, Percutaneous Approach (ICD-10-PCS; 2023-10-15)
PROC: 30243N1 Transfusion of Nonautologous Red Blood Cells into Central Vein, Percutaneous Approach (ICD-10-PCS; 2023-10-15)
PROC: 30243M1 Transfusion of Nonautologous Plasma Cryoprecipitate into Central Vein, Percutaneous Approach (ICD-10-PCS; 2023-10-15)
PROC: 03HY32Z Insertion of Monitoring Device into Upper Artery, Percutaneous Approach (ICD-10-PCS; 2023-10-15)
PROC: 0DJW4ZZ Inspection of Peritoneum, Percutaneous Endoscopic Approach (ICD-10-PCS; 2023-10-15)
PROC: 4A133R1 Monitoring of Arterial Saturation, Peripheral, Percutaneous Approach (ICD-10-PCS; 2023-10-15)
DX: A41.9 Sepsis, unspecified organism (principal); G93.41 Metabolic encephalopathy; K65.1 Peritoneal abscess; K75.0 Abscess of liver; K66.1 Hemoperitoneum; R65.21 Severe sepsis with septic shock; N17.9 Acute kidney failure, unspecified; K81.0 Acute cholecystitis; J98.11 Atelectasis; E87.20 Acidosis, unspecified; I48.19 Other persistent atrial fibrillation; E44.0 Moderate protein-calorie malnutrition; D62 Acute posthemorrhagic anemia; Z66 Do not resuscitate; I48.91 Unspecified atrial fibrillation; K82.8 Other specified diseases of gallbladder; E80.6 Other disorders of bilirubin metabolism; N40.0 Benign prostatic hyperplasia without lower urinary tract symptoms; I12.9 Hypertensive chronic kidney disease with stage 1 through stage 4 chronic kidney disease, or unspecified chronic kidney disease; I48.0 Paroxysmal atrial fibrillation; R73.03 Prediabetes; E78.00 Pure hypercholesterolemia, unspecified; R57.1 Hypovolemic shock; R79.89 Other specified abnormal findings of blood chemistry; R57.8 Other shock; N18.30 Chronic kidney disease, stage 3 unspecified; E83.42 Hypomagnesemia; E83.51 Hypocalcemia; E87.6 Hypokalemia; M19.90 Unspecified osteoarthritis, unspecified site; E83.39 Other disorders of phosphorus metabolism; E86.0 Dehydration; Z87.11 Personal history of peptic ulcer disease; Z98.84 Bariatric surgery status; Z98.42 Cataract extraction status, left eye; Z95.1 Presence of aortocoronary bypass graft; Z68.28 Body mass index [BMI] 28.0-28.9, adult; Z79.899 Other long term (current) drug therapy; Z87.891 Personal history of nicotine dependence
CPT/HCPCS: 36415; 36416; 36430; 36600; 49406; 71045; 74177; 76705; 78226; 80048; 80053; 80074; 80076; 81001; 82805; 83516; 83605; 83690; 83735; 83880; 84100; 84145; 84484; 85025; 85060; 85379; 85384; 85610; 85730; 86015; 86038; 86141; 86225; 86850; 86900; 86901; 87070; 87086; 87205; 89051; 93005; 93010; 93970; 94002; 96374; 96375; 96376; A9537; C1713; C9113; G0378; J0171; J0665; J1650; J1720; J1885; J2185; J2250; J2270; J2272; J2543; J2704; J2720; J3010; J3475; J3480; J3490; J7050; J7120; P9012; P9016; P9035; P9045; P9059; Q9967